=== PATIENT | female | born 1960 | race American Indian/Alaskan Native ===

== ENCOUNTER 2021-10-07 12:38 | Outpatient (CLI) | payer MEDICAID ==
--- NOTE | 2021-10-07 14:06 | XRay Report ---
CHEST 2 VIEWS INDICATION / CLINICAL INFORMATION: COPD. COMPARISON: None available. FINDINGS: SUPPORT DEVICES: None. HEART / MEDIASTINUM: No significant abnormality. LUNGS / PLEURA: No significant pulmonary or pleural abnormality. No pneumothorax. ADDITIONAL FINDINGS: No significant additional findings. IMPRESSION: 1. No acute findings. Signer Name: Zechariah Flores MD Signed: 10/07/2021 2:02 PM Workstation Name: [id number]
--- NOTE | 2021-10-07 14:20 | XRay Report ---
Standard view bilateral knees 1 view INDICATION: Knee pain IMPRESSION: Degenerative change with joint space narrowing in the medial and lateral compartments of bilateral knees. Signer Name: Zechariah Flores MD Signed: 10/07/2021 2:16 PM Workstation Name: [id number]
== END 2021-10-07 12:39 | disposition home or self-care (01) ==
LOC: XRAY 12:38
PROVIDERS: ATTEND Orthopaedic Surgery
DX: M17.0 Bilateral primary osteoarthritis of knee (principal); J44.9 Chronic obstructive pulmonary disease, unspecified
CPT/HCPCS: 71046; 73565